=== PATIENT | male | born 1995 | race American Indian/Alaskan Native ===

== ENCOUNTER 2019-12-12 16:52 | Emergency (ER) | payer BC ==
[2019-12-12 17:20] VITALS: BP 139/98
--- NOTE | 2019-12-12 18:15 | Emergency Department Report ---
Chief Complaint: Extremity Injury, Upper Stated Complaint: RT WRIST PAIN Time Seen by Provider: 12/12/19 17:58 - HPI History of Present Illness: Patient is a 24-year-old male presents emergency room with complaints of chronic right wrist pain that has been going on for several months. He states that he had a scaphoid fracture back in June and saw an orthopedic at that time and states that he wore a cast for approximately 2 to 3 months. He states he has just had continued pain since then. He denies any increasing or worsening pain he states that it has been about the same. He denies any swelling. He denies any new fall or injury. He denies any numbness or weakness. He is using it and moving it without any difficulty. He states he has a history of a benign murmur. No allergies to medications. He states that he actually just presents for a work excuse. Vitals are normal On exam: Non toxic appearing, no acute distress atraumatic, normocephalic normal appearance of the eyes, PERRL, no periorbital edema or ecchymosis moist mucus membranes no respiratory distress, no accessory muscle use No bony tenderness to palpation of the right wrist, right hand, right digits, no snuffbox tenderness palpation, full range of motion of the right wrist, right hand, right digits, no edema, no increased warmth, no skin changes, neurovascularly intact A&O x4, no focal neuro deficit skin is warm, dry, intact Patient is presenting for chronic wrist pain He has had no acute fracture or injury On exam: No bony tenderness to palpation of the right wrist, right hand, right digits, no snuffbox tenderness palpation, full range of motion of the right wrist, right hand, right digits, no edema, no increased warmth, no skin changes, neurovascularly intact No clinical signs of gout no clinical signs of septic joint unlikely to be avascular necrosis as he has FROM and no ttp and is using the joint without difficulty Advised patient May alternate Tylenol or ibuprofen as needed for discomfort. May ice for 15 minutes at a time, rest. Follow-up with the orthopedic doctor you saw originally. If you are unable to follow-up with that orthopedic, there are other doctors listed below. Return to emergency room for any new or worsening symptoms. Medical screening examination performed and there is no threat to life or limb at this time - Exam Vital Signs: Vital Signs 12/12/19 17:18 Temperature 97.8 F Pulse Rate 100 H Respiratory 20 Rate Blood Pressure 139/98 O2 Sat by Pulse 99 Oximetry MSE screening note: Focused history and physical exam performed. ED Disposition for MSE Clinical Impression: Chronic pain of right wrist Disposition: MED SCREENING EXAM-LEFT Is pt being admited?: No Does the pt Need Aspirin: No Condition: Stable Instructions: Arthralgia (ED) Additional Instructions: May alternate Tylenol or ibuprofen as needed for discomfort. May ice for 15 minutes at a time, rest. Follow-up with the orthopedic doctor you saw originally. If you are unable to follow-up with that orthopedic, there are other doctors listed below. Return to emergency room for any new or worsening symptoms. Referrals: LORENZA NEGRON MD [Staff Physician] - 2-3 Days [facility] [Provider Group] - 2-3 Days Forms: Work/School Release Form(ED) Time of Disposition: 18:14 Print Language: SUDANESE
== END 2019-12-12 18:20 | disposition left against medical advice (07) ==
LOC: ED 16:52
DX: M25.531 Pain in right wrist (principal); Z53.21 Procedure and treatment not carried out due to patient leaving prior to being seen by health care provider